=== PATIENT | female | born 1960 | race Caucasian/White ===

== ENCOUNTER 2021-03-31 09:09 | Observation (INO) | payer BC, SELFPAY ==
[2021-03-31] VITALS (11 sets, daily range): BP systolic 142–194; BP diastolic 73–95; PULSE 57–78; RESP 16–19; TEMP 36.6; O2SAT 94–99; BMI 37.0
--- NOTE | ~2021-03-31 | CT_ITS ---
EXAMINATION: CT ANGIOGRAM NECK WITH CONTRAST CT ANGIOGRAM BRAIN WITH CONTRAST CLINICAL INFORMATION: Dizziness and left-sided body numbness. COMPARISON: None. TECHNIQUE: Test bolus sequences followed by intravenous administration 100 mL of Omnipaque 350. Helical imaging was performed in the axial plane from the thoracic inlet to the skull vertex. Delayed postcontrast imaging of the head was also performed. The data was processed at the molecular technologist workstation for generation of MIP sequences. Angled MIPs and volume rendered reformatted images were also generated at an offline 3D workstation. Stenoses are assessed in accordance with NASCET criteria unless otherwise indicated. This CT examination was performed using dose optimization techniques as appropriate, variously including the following: *Automated exposure control *Adjustment of mA and/or kV according to patient size (this includes techniques or standardized protocols for targeted exams where dose is matched to indication/reason for exam; i.e. extremities or head) *Use of iterative reconstruction technique DLP: 2663 mGy-cm FINDINGS: Head CT: There is no intracranial hemorrhage, large acute infarction, or mass lesion. The ventricles are normal in size and configuration without evidence of hydrocephalus. Patchy hypoattenuation is seen in the bilateral cerebral white matter most typical of chronic microangiopathy. A small chronic lacunar infarct is seen in the right basal ganglia. The left aspect of the cecil is difficult to evaluate due to streak artifact throughout this region. On the postcontrast images, no abnormal enhancement is seen. The dural venous sinuses are normally opacified. Mild paranasal sinus mucosal thickening is seen. The mastoids demonstrate minimal opacification. Neck CTA: The aortic arch and great vessels are patent. Both common carotid arteries demonstrate a retropharyngeal course but are patent with mild atheromatous changes noted. There is no significant stenosis of the cervical segments of the internal carotid arteries. Both vertebral arteries are patent throughout the neck. Head CTA: No proximal vessel occlusion is seen. The vertebrobasilar system is patent. 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 The ACAs are patent. Mild atheromatous changes are seen at the carotid siphons without significant stenosis. The ACAs and MCAs are patent with symmetric collaterals. No aneurysm is seen. Non-vascular findings: Severe degenerative changes are seen at C4-C5, C5-C6, and C6-C7. The cervical soft tissues are within normal limits. No consolidation is seen in the upper lungs. Significant periodontal and periapical disease is seen. CT/CT angio head neck IMPRESSION: CT head: No intracranial hemorrhage or large acute infarction. Changes of chronic microangiopathy. Small chronic lacunar infarct is seen in the right basal ganglia CTA neck: No hemodynamically significant stenosis in the major arteries of the neck. CTA head: No large vessel occlusion or significant stenosis within the intracranial circulation. This critical result was discussed with EARNEST Morales on 03/31/2021 12:08 PM, and it was ascertained that the content and urgency of the report was understood at the time of direct communication.
--- NOTE | ~2021-03-31 | MR_ITS ---
EXAMINATION: MRI BRAIN WITHOUT CONTRAST CLINICAL INFORMATION: Dizziness. Left-sided paresthesias. COMPARISON: CT angiogram of the head and neck 03/31/2021. TECHNIQUE: Multiplanar MR imaging of the brain was performed without contrast. FINDINGS: There are scattered nonspecific foci of T2 FLAIR signal hyperintensity within the periventricular white matter that most likely represent a chronic manifestation of small vessel ischemia. No acute territorial infarct. No pathological magnetic susceptibility artifact. Intracranial vascular flow voids are grossly maintained. There is no intracranial mass effect or midline shift. No abnormal extra-axial collection. Lateral and third ventricles are proportionate to the subarachnoid spaces. No hydrocephalus. Midline structures including the cervicomedullary junction are normal. No acute bone marrow signal changes. There is a left mastoid effusion. No active paranasal sinus disease. Globes and orbits are symmetric. MR/MR head/brain wo con IMPRESSION: There are scattered chronic small vessel ischemic changes within the periventricular white matter. No evidence of acute territorial infarct or hemorrhage.
--- NOTE | ~2021-03-31 | XR_ITS ---
EXAMINATION: XR CHEST CLINICAL INFORMATION: Dizziness and left-sided body numbness COMPARISON: None TECHNIQUE: Frontal view of the chest was obtained. FINDINGS: The lungs are well-expanded with patchy opacity in the lingula. Rest lungs are clear. The heart size and pulmonary vascularity is normal. No gross bony abnormality. XR/XR chest 1V IMPRESSION: There is patchy opacity in both lung bases, likely atelectasis. No acute process seen.
--- NOTE | 2021-03-31 09:36 | ECG_ITS ---
Test Reason : DIZZINESS Blood Pressure : / mmHG Vent. Rate : 058 BPM Atrial Rate : 058 BPM P-R Int : 128 ms QRS Dur : 104 ms QT Int : 442 ms P-R-T Axes : 006 -02 049 degrees QTc Int : 433 ms Sinus bradycardia Otherwise normal ECG No previous ECGs available Referred By: Elisha Nascimento Electronically Signed By:Jv Garcia
[2021-03-31 10:13] LABS: MANUAL DIFF FLAG NO
[2021-03-31 10:17] LABS: Basophils Absolute Auto 0.1 X10*3/uL (0.0-0.2); Basophils Percent Auto 0.9 % (0-2); Eosinophils Absolute Auto 0.2 X10*3/uL (0.0-0.4); Eosinophils Percent Auto 2.2 % (0-4); Hematocrit 40.5 % (37-47); Imm Gran Abs Auto 0.04 X10*3/uL (0.00-0.03); Imm Gran Pct Auto 0.5 % (0.0-0.4); Lymphocytes Absolute Auto 1.8 X10*3/uL (1.2-4.9); Lymphocytes Percent Auto 23.9 % (20-40); Mean Corpuscular HGB Conc 34.6 g/dl (31.0-35.0); Mean Corpuscular Hemoglobin 33.3 pg (27.0-33.0); Mean Corpuscular Volume 96.2 fL (80-98); Mean Platelet Volume 9.9 fL (9.4-12.3); Monocytes Absolute Auto 0.5 X10*3/uL (0.1-1.2); Monocytes Percent Auto 6.7 % (2-11); Neutrophils Percent Auto 65.8 % (45-73); Platelet Count 234 X10*3/uL (160-400); Red Blood Count 4.21 X10*6/uL (4.20-5.50); Red Cell Distribution Width 12.3 % (11.0-16.0); White Blood Count 7.7 X10*3/uL (4.8-10.8)
[2021-03-31 10:26] LABS: INTERNATIONAL NORM RATIO 0.9 (0.9-1.1); Prothrombin Time 10.6 SEC (9.9-13.0)
[2021-03-31 10:29] LABS: Partial Thromboplastin Time 33.5 SEC (24.1-38.0)
[2021-03-31 10:44] LABS: B Type Natriuretic Peptide 42 pg/mL (<100)
[2021-03-31 10:44] LABS: Alanine Aminotransferase 23 U/L (0-31); Alkaline Phosphatase 76 U/L (39-117); Anion Gap 18 (12-20); Aspartate Amino Transferase 29 U/L (5-31); Bilirubin Total 0.3 mg/dL (0.0-1.0); Blood Urea Nitrogen 10 mg/dL (9-16); Calcium 9.3 mg/dL (8.4-10.2); Carbon Dioxide 21 mmol/L (22-29); Chloride 105 mmol/L (96-108); Creatinine Clr Calc Pharmacy 97.2; Estimated Glomerular Filt Rate > 60; Glucose Random 102 mg/dL (60-115); Magnesium 1.8 mg/dL (1.6-2.6); Potassium 4.8 mmol/L (3.3-5.1); Sodium 139 mmol/L (135-145); Total Protein 6.9 g/dL (6.5-8.0)
[2021-03-31] MEDS: iohexoL 350 MG/ML 100 ML INFUS..BTL IV (11:54)
--- NOTE | 2021-03-31 11:59 | ED_ITS ---
HPI - Neuro Symptoms/Deficit General Chief Complaint: Stroke Stated Complaint: left side numbness, high blood pressure Time Seen by Provider: 03/31/21 09:28 Source: patient and family ( at bedside) Mode of arrival: ambulatory Limitations: no limitations History of Present Illness HPI Narrative: 60-year-old female with a past medical history of asthma, hyperlipidemia and hypertension presenting to the ED with complaints of numbness that started at approximately 17:00 yesterday to her left arm then radiated to her left face and now is in her left lower extremity with associated dizziness where she feels like she is going to fall over. She reports this morning she also had an elevated blood pressure of 200's/115's prior to arrival although this was before she took her blood pressure medication. She denies any headaches, recent falls or head injury, fevers, chills, changes in vision, nausea/vomiting, paresthesias, chest pain, shortness of breath, dyspnea exertion, orthopnea, palpitations, abdominal pain, back pain, dysuria, hematuria, black or bloody stools, diarrhea, constipation, lower extremity edema or calf tenderness or any other symptoms complaints or concerns at this time. Onset (ago): day(s) (Since yesterday around 17:00) Timing confirmed by: spouse Location: left face, left arm and left leg History of same: No Severity: moderate Quality: numb, tingling and constant Relieving factors: none Exacerbating factors: none Context: gradual onset On Anticoagulants: No Associated symptoms: other (Dizziness) Treatments Prior to Arrival: none Related Data Home Medications Medication Instructions Recorded Confirmed albuterol sulfate 90 mcg/actuation 2 inh INHALATION Q4H PRN 03/31/21 03/31/21 aerosol inhaler allopurinol 300 mg tablet 1 tab PO BEDTIME 03/31/21 03/31/21 budesonide-formoterol HFA 160 2 puff PO BID 03/31/21 03/31/21 mcg-4.5 mcg/actuation aerosol inhaler (Symbicort) carvedilol 12.5 mg tablet 1 tab PO BID 03/31/21 03/31/21 cetirizine 10 mg tablet (Zyrtec) 10 mg PO DAILY 03/31/21 03/31/21 citalopram 20 mg tablet 20 mg PO BEDTIME 03/31/21 03/31/21 fluticasone propionate 50 1 spray INTRANASAL DAILY 03/31/21 03/31/21 mcg/actuation nasal spray,suspension montelukast 10 mg tablet 1 tab PO BEDTIME 03/31/21 03/31/21 simvastatin 20 mg tablet 1 tab PO BEDTIME 03/31/21 03/31/21 Allergies Allergy/AdvReac Type Severity Reaction Status Date / Time clindamycin Allergy Hives Verified 03/31/21 09:16 Penicillins [PCN] Allergy Anaphylaxis Verified 03/31/21 09:16 Sulfa (Sulfonamide Allergy Vomiting Verified 03/31/21 09:16 Antibiotics) Review of Systems Review of Systems: Constitutional : No Fever, No Chills, No Night Sweats, No Fatigue, No Malaise ENT/Mouth : No Ear Pain, No Nasal Congestion, No Sinus Pain, No sore throat, No Rhinorrhea Eyes: No Eye Pain, No Swelling, No Redness, No Foreign Body, No Discharge, No Vision Changes Cardiovascular : No Chest Pain, No SOB, No Dyspnea on Exertion, No Orthopnea, No Palpitations Respiratory : No Cough, No Sputum, No Wheezing, No Dyspnea Gastrointestinal : No Nausea, No Vomiting, No Diarrhea, No Constipation, No abdominal Pain, No Hematochezia, No Melena Genitourinary : No Dysuria, No Urinary Frequency, No Urinary Incontinence, No Urgency, No Flank Pain Musculoskeletal : No joint pain, No Myalgias Skin : No lacerations Neuro : Positive Dizziness, Positive Numbness/tingling to Left Face/arm/leg, No Focal weakness, no general weakness, No Loss of Consciousness, No Headache Yes all other systems are reviewed and are negative [facility] Past Medical History Attestation statement: The following information was validated with the patient. Medical History Asthma High cholesterol HTN (hypertension) Social History Social History Advance Directives: No Advance Directives Information Provided: Yes Physical Exam Vital Signs: Vital Signs: Last Vital Signs Temp 98 F 03/31/21 09:16 Pulse 62 03/31/21 14:11 Resp 16 03/31/21 14:11 BP 185/90 H 03/31/21 14:11 Pulse Ox 99 03/31/21 14:11 Body Mass Index 37.0 Vital signs have been reviewed as normal and appeared to be correct. Blood pressure hypertensive 142/73. Heart rate normal. Respiration rate normal. Temperature normal. Oxygen saturation normal. Appearance: Alert. Oriented X3. No acute distress. Head: Normal external exam. Normocephalic. Atraumatic. Able to rotate head bilaterally. Eyes: PERRLA. EOMI. No nystagmus noted. Conjunctiva and sclera normal. Eyelids normal. Corneal reflex normal. ENT: EAC normal. TM's Normal. Hearing normal. Pharynx normal. Uvula midline. tongue midline. Moist mucous membranes. No trismus noted. No drooling noted. No muffled voice noted. No nystagmus noted. Neck: Normal inspection. Neck supple. FROM. No adenopathy. Trachea midline. Thyroid Normal. No meningeal signs. No neck mass noted. CVS: Normal heart rate and rhythm. Heart sound normal. No murmurs noted. Pulses normal throughout. Respiratory: No respiratory distress. Painless inspiration. Breath sounds n ormal. No wheezes/rales/rhonchi noted. Chest nontender. No accessory muscle usage noted or decreased air movement noted. Abdomen: Soft and nontender. Bowel sounds normal in all 4 quadrants. No diste ntion noted. No organomegaly noted. No visible injury noted. Back: No CVA tenderness. Full range of motion noted. Skin: Skin warm and dry. Normal skin color. Normal skin turgor. No rashes/lesions/lacerations noted. Extremities: No lower extremity edema. Extremities exhibit normal range of motio n. Extremities nontender. Able to shrug shoulders bilaterally and keep up against resistance. Neuro: Oriented X 3. No motor deficit. No sensory deficit. Reflexes normal. Moving all extremities. No focal motor deficits. Cranial nerves II-XI intact bilaterally. Facial strength normal. Normal cognition. Speech normal. Gait normal. Strength 5/5 throughout. No pronator drift. No tremor noted. No fasciculations noted. No rigidity noted. Muscle tone normal throughout. No asterixis noted. [id number] test normal. Heel to luis test normal. Tandem gait normal. Does not sway with eyes open. Romberg test negative. Rapid alternating movement upper extremity normal. Rapid alternating movement lower extremity normal. Hand drop from overhead Misses face. NIHSS score 0. Course Course Course Narrative: 9:35am - 60-year-old female presenting to the ED with complaints of numbness that start ed at approximately 17:00 yesterday to her left arm then radiated to her left face and now is in her left lower extremity with associated dizziness where she feels like she is going to fall over. She reports this morning she also had an elevated blood pressure of 200's/115's prior to arrival although this was before she took her blood pressure medication. On Exam patient is alert oriented x3. Not in any acute distress. No focal neuro deficits are noted. Normal steady gait. NIH SS score 0. Patient has non disabling symptoms therefore tPA not indicated at this time and patient's symptoms started at 17:00 yesterday. Lungs clear to auscultation. CV RRR. Abdomen is soft and nontender. No lower extremity edema or calf tenderness is noted. Plan: Labs, CTA of head and neck for stroke, EKG, orthostatic vitals, chest x- ray and re-evaluate. Reevaluation(s) Reevaluation #1: - labs reviewed and troponin at 4.0 otherwise all other labs are within normal limits. - pending at this time is orthostatic vitals and CTA of head and neck for stroke will re-evaluate. Time: 12:06 Reevaluation #2: - CTA of head and neck revealed chronic changes no acute processes such as stroke - therefore I consulted with Dr. Grant and Dr. Nieves and patient will be admitted for observation for dizziness with left-sided paresthesias for an MRI without contrast. Patient understands agrees with this plan. Time: 14:25 MDM - Neuro Symptoms/Deficit Medical Records Attestation: I reviewed the patient's medical records. Lab Data Attestation: I reviewed the patient's lab results. Result diagrams: 03/31/21 10:02 03/31/21 10:02 Labs: Lab Results 03/31/21 03/31/21 03/31/21 Range/Units 10:02 10:02 10:02 WBC 7.7 (4.8-10.8) X10*3/uL RBC 4.21 (4.20-5.50) X10*6/uL Hgb 14.0 (12.0-16.0) g/dl Hct 40.5 (37-47) % MCV 96.2 (80-98) fL MCH 33.3 H (27.0-33.0) pg MCHC 34.6 (31.0-35.0) g/dl RDW 12.3 (11.0-16.0) % Plt Count 234 (160-400) X10*3/uL MPV 9.9 (9.4-12.3) fL Immature Gran % (Auto) 0.5 H (0.0-0.4) % Neut % (Auto) 65.8 (45-73) % Lymph % (Auto) 23.9 (20-40) % [place] % (Auto) 6.7 (2-11) % Eos % (Auto) 2.2 (0-4) % Baso % (Auto) 0.9 (0-2) % Lymph # (Auto) 1.8 (1.2-4.9) X10*3/uL [place] # (Auto) 0.5 (0.1-1.2) X10*3/uL Eos # (Auto) 0.2 (0.0-0.4) X10*3/uL Baso # (Auto) 0.1 (0.0-0.2) X10*3/uL Abs Immat Gran (auto) 0.04 H (0.00-0.03) X10*3/uL Absolute Neuts (auto) 5.0 (2.0-8.3) X10*3/uL Absolute Nucleated RBC 0.000 (0.0-0.012) X10*3/uL Nucleated RBC % (auto) 0.0 (0.0-0.2) /100WBC PT 10.6 (9.9-13.0) SEC INR 0.9 (0.9-1.1) APTT 33.5 (24.1-38.0) SEC Sodium 139 (135-145) mmol/L Potassium 4.8 (3.3-5.1) mmol/L Chloride 105 (96-108) mmol/L Carbon Dioxide 21 L (22-29) mmol/L Anion Gap 18 (12-20) BUN 10 (9-16) mg/dL Creatinine 0.70 (0.5-1.4) mg/dL Estim Creat Clear Calc 97.2 Estimated GFR > 60 Random Glucose 102 (60-115) mg/dL Calcium 9.3 (8.4-10.2) mg/dL Magnesium 1.8 (1.6-2.6) mg/dL Total Bilirubin 0.3 (0.0-1.0) mg/dL AST 29 (5-31) U/L ALT 23 (0-31) U/L Alkaline Phosphatase 76 (39-117) U/L Troponin I High Sens (<3.5-17.0) ng/L B-Natriuretic Peptide (<100) pg/mL Total Protein 6.9 (6.5-8.0) g/dL Albumin 4.0 (3.5-5.0) g/dL Urine Color Urine Appearance Urine pH (5.0-8.0) Ur Specific [place] (1.005-1.025) Urine Protein (NEG-TRACE) MG/DL Urine Glucose (UA) (NEG) MG/DL Urine Ketones (NEG) MG/DL Urine Blood (NEG) Urine Nitrite (NEG) Ur Leukocyte Esterase (NEG) COVID-19 (MALISSA) (Negative) COVID-19 Clin Com 03/31/21 03/31/21 03/31/21 Range/Units 10:03 12:45 12:45 WBC (4.8-10.8) X10*3/uL RBC (4.20-5.50) X10*6/uL Hgb (12.0-16.0) g/dl Hct (37-47) % MCV (80-98) fL MCH (27.0-33.0) pg MCHC (31.0-35.0) g/dl RDW (11.0-16.0) % Plt Count (160-400) X10*3/uL MPV (9.4-12.3) fL Immature Gran % (Auto) (0.0-0.4) % Neut % (Auto) (45-73) % Lymph % (Auto) (20-40) % [place] % (Auto) (2-11) % Eos % (Auto) (0-4) % Baso % (Auto) (0-2) % Lymph # (Auto) (1.2-4.9) X10*3/uL [place] # (Auto) (0.1-1.2) X10*3/uL Eos # (Auto) (0.0-0.4) X10*3/uL Baso # (Auto) (0.0-0.2) X10*3/uL Abs Immat Gran (auto) (0.00-0.03) X10*3/uL Absolute Neuts (auto) (2.0-8.3) X10*3/uL Absolute Nucleated RBC (0.0-0.012) X10*3/uL Nucleated RBC % (auto) (0.0-0.2) /100WBC PT (9.9-13.0) SEC INR (0.9-1.1) APTT (24.1-38.0) SEC Sodium (135-145) mmol/L Potassium (3.3-5.1) mmol/L Chloride (96-108) mmol/L Carbon Dioxide (22-29) mmol/L Anion Gap (12-20) BUN (9-16) mg/dL Creatinine (0.5-1.4) mg/dL Estim Creat Clear Calc Estimated GFR Random Glucose (60-115) mg/dL Calcium (8.4-10.2) mg/dL Magnesium (1.6-2.6) mg/dL Total Bilirubin (0.0-1.0) mg/dL AST (5-31) U/L ALT (0-31) U/L Alkaline Phosphatase (39-117) U/L Troponin I High Sens 4.0 4.2 (<3.5-17.0) ng/L B-Natriuretic Peptide 42 (<100) pg/mL Total Protein (6.5-8.0) g/dL Albumin (3.5-5.0) g/dL Urine Color YELLOW Urine Appearance HAZY Urine pH 6.0 (5.0-8.0) Ur Specific [place] <= 1.005 (1.005-1.025) Urine Protein NEG (NEG-TRACE) MG/DL Urine Glucose (UA) NEG (NEG) MG/DL Urine Ketones NEG (NEG) MG/DL Urine Blood NEG (NEG) Urine Nitrite NEG (NEG) Ur Leukocyte Esterase NEG (NEG) COVID-19 (MALISSA) (Negative) COVID-19 Clin Com 03/31/21 Range/Units 13:39 WBC (4.8-10.8) X10*3/uL RBC (4.20-5.50) X10*6/uL Hgb (12.0-16.0) g/dl Hct (37-47) % MCV (80-98) fL MCH (27.0-33.0) pg MCHC (31.0-35.0) g/dl RDW (11.0-16.0) % Plt Count (160-400) X10*3/uL MPV (9.4-12.3) fL Immature Gran % (Auto) (0.0-0.4) % Neut % (Auto) (45-73) % Lymph % (Auto) (20-40) % [place] % (Auto) (2-11) % Eos % (Auto) (0-4) % Baso % (Auto) (0-2) % Lymph # (Auto) (1.2-4.9) X10*3/uL [place] # (Auto) (0.1-1.2) X10*3/uL Eos # (Auto) (0.0-0.4) X10*3/uL Baso # (Auto) (0.0-0.2) X10*3/uL Abs Immat Gran (auto) (0.00-0.03) X10*3/uL Absolute Neuts (auto) (2.0-8.3) X10*3/uL Absolute Nucleated RBC (0.0-0.012) X10*3/uL Nucleated RBC % (auto) (0.0-0.2) /100WBC PT (9.9-13.0) SEC INR (0.9-1.1) APTT (24.1-38.0) SEC Sodium (135-145) mmol/L Potassium (3.3-5.1) mmol/L Chloride (96-108) mmol/L Carbon Dioxide (22-29) mmol/L Anion Gap (12-20) BUN (9-16) mg/dL Creatinine (0.5-1.4) mg/dL Estim Creat Clear Calc Estimated GFR Random Glucose (60-115) mg/dL Calcium (8.4-10.2) mg/dL Magnesium (1.6-2.6) mg/dL Total Bilirubin (0.0-1.0) mg/dL AST (5-31) U/L ALT (0-31) U/L Alkaline Phosphatase (39-117) U/L Troponin I High Sens (<3.5-17.0) ng/L B-Natriuretic Peptide (<100) pg/mL Total Protein (6.5-8.0) g/dL Albumin (3.5-5.0) g/dL Urine Color Urine Appearance Urine pH (5.0-8.0) Ur Specific [place] (1.005-1.025) Urine Protein (NEG-TRACE) MG/DL Urine Glucose (UA) (NEG) MG/DL Urine Ketones (NEG) MG/DL Urine Blood (NEG) Urine Nitrite (NEG) Ur Leukocyte Esterase (NEG) COVID-19 (MALISSA) Negative (Negative) COVID-19 Clin Com See Note Imaging Data Chest x-ray: Attestation: I personally reviewed and interpreted this imaging study as follows: Radiologist's impression: FINDINGS: The lungs are well-expanded with patchy opacity in the lingula. Rest lungs are clear. The heart size and pulmonary vascularity is normal. No gross bony abnormality. XR/XR chest 1V IMPRESSION: There is patchy opacity in both lung bases, likely atelectasis. No acute process seen. CTA of head and neck: Attestation: I personally reviewed and interpreted this imaging study as follows: Radiologist's impression: FINDINGS: Head CT: There is no intracranial hemorrhage, large acute infarction, or mass lesion. The ventricles are normal in size and configuration without evidence of hydrocephalus. Patchy hypoattenuation is seen in the bilateral cerebral white matter most typical of chronic microangiopathy. A small chronic lacunar infarct is seen in the right basal ganglia. The left aspect of the cecil is difficult to evaluate due to streak artifact throughout this region. On the postcontrast images, no abnormal enhancement is seen. The dural venous sinuses are normally opacified. ? Mild paranasal sinus mucosal thickening is seen. The mastoids demonstrate minimal opacification. Neck CTA: The aortic arch and great vessels are patent. Both common carotid arteries demonstrate a retropharyngeal course but are patent with mild atheromatous changes noted. There is no significant stenosis of the cervical segments of the internal carotid arteries. Both vertebral arteries are patent throughout the neck. Head CTA: No proximal vessel occlusion is seen. The vertebrobasilar system is patent. There is disposition of the bilateral daily sales audit clerk. The ACAs are patent. Mild atheromatous changes are seen at the carotid siphons without significant stenosis. The ACAs and MCAs are patent with symmetric collaterals. No aneurysm is seen. Non-vascular findings: Severe degenerative changes are seen at C4-C5, C5-C6, and C6-C7. The cervical soft tissues are within normal limits. No consolidation is seen in the upper lungs. Significant periodontal and periapical disease is seen. CT/CT angio head neck IMPRESSION: CT head: No intracranial hemorrhage or large acute infarction. Changes of chronic microangiopathy. Small chronic lacunar infarct is seen in the right basal ganglia ? CTA neck: No hemodynamically significant stenosis in the major arteries of the neck. ? CTA head: No large vessel occlusion or significant stenosis within the intracranial circulation. ? This critical result was discussed with EARNEST Morales on 03/31/2021 12:08 PM, and it was ascertained that the content and urgency of the report was understood at the time of direct communication. ECG Data Attestation: I personally reviewed and interpreted this ECG as follows: ECG interpretation date: 03/31/21 ECG interpretation time: 09:39 Interpretation: EKG sinus bradycardia with ventricular rate of 58 with a normal ID interval normal QRS duration normal QT/QTC interval. No acute ischemic paredes e noted. No prior EKGs in our system to at this time. Critical Care Time Critical Care Time Critical Care Time: Yes Total Critical Care Time: 60 Attestation: I personally attest to this time spent taking care of the patient Discharge Plan Discharge Clinical Impression: Dizziness, Paresthesia Patient Disposition: Admitted As Inpatient
[2021-03-31 12:55] LABS: Glucose Urine UA NEG (NEG); Leukocyte Esterase Urine NEG (NEG); Nitrite Urine NEG (NEG); Specific Gravity - Urine <= 1.005 (1.005-1.025); Urine Blood NEG (NEG); Urine Ketones NEG (NEG); Urine Protein NEG (NEG-TRACE)
[2021-03-31 12:58] LABS: Appearance Urine HAZY; Color Urine YELLOW
[2021-03-31 13:17] LABS: Troponin-I High Sensitivity 4.2 ng/L (<3.5-17.0)
[2021-03-31 14:00] LABS: COVID-19 Test Negative (Negative)
--- NOTE | 2021-03-31 14:09 | PM.IMHP ---
History of Present Illness Date of Service: 03/31/21 Chief Complaint: left sided numbness 60F presented with left sided numbness. day prior to admission patient felt left sided numbness, then in early am awoke with left leg feeling like a noodle weakness, and numbness, and LUE numbness. also started having headache. dneies aura. denies previous symptoms. in ED CTA was negative for acute cva, did show old lacunar infarct right basal ganglia. weakness, resolved, but numbness still perssitent. Review of Systems Review of Systems: Constitutional: Denies fever, denies Chills Eyes: denies blurry vision ENT: denies sore throat CVS: denies chest pain Respiratory: Denies dyspnea GI: no abdominal pain : denies dysuria MSK: denies neck pain Skin: denies rash Neuro: see hpi Psych: denies suicidal ideation Endocrine: denies heat/cold intolerance Hematologic: denies easy bleeding Allergy: denies hives [facility] Medical History Asthma High cholesterol HTN (hypertension) Family history: reviewed and not pertinent Social History Advance Directives: No Advance Directives Information Provided: Yes Meds Allergies Allergy/AdvReac Type Severity Reaction Status Date / Time clindamycin Allergy Hives Verified 03/31/21 09:16 Penicillins [PCN] Allergy Anaphylaxis Verified 03/31/21 09:16 Sulfa (Sulfonamide Allergy Vomiting Verified 03/31/21 09:16 Antibiotics) Active Medications: Current Medications Generic Name Dose Route Start Last Admin Trade Name Freq PRN Reason Stop Dose Admin Pharmacy Consult 1 each 03/31/21 13:27 Consult Rx Perform Med Rec MISCELLANE ONCE PRN Consult order Home Medications Medication Instructions Recorded Confirmed Last Taken Type allopurinol 300 mg tablet 1 tab PO DAILY 03/31/21 Unknown History budesonide-formoterol HFA 160 2 puff PO BID 03/31/21 Unknown History mcg-4.5 mcg/actuation aerosol inhaler (Symbicort) carvedilol 12.5 mg tablet 1 tab PO BID 03/31/21 Unknown History montelukast 10 mg tablet 1 tab PO DAILY 03/31/21 Unknown History simvastatin 20 mg tablet 1 tab PO QPM 03/31/21 Unknown History Physical Exam Vital Signs and Narrative: Vital Signs: Last Vital Signs Temp 98 F 03/31/21 09:16 Pulse 67 03/31/21 12:45 Resp 16 03/31/21 12:45 BP 169/84 H 03/31/21 12:45 Pulse Ox 95 03/31/21 12:45 Body Mass Index 37.0 General: no acute distress HEENT: atraumatic Neck: normal to visual inspection CVS: S1, S2, RRR Resp: CTA bilateral Chest: non tender GI: soft, non tender, non distended : no CVA tenderness Skin: no rashes Extremities: no edema Neuro: Oriented X3, motor intact, numb left upper and lower Psych: cooperative Results Labs CBC and Chem 7: 03/31/21 10:02 03/31/21 10:02 Labs: Laboratory Results - last 24 hr 03/31/21 03/31/21 03/31/21 10:02 10:02 10:02 MCV 96.2 MCH 33.3 H MCHC 34.6 RDW 12.3 Plt Count 234 MPV 9.9 Immature Gran % (Auto) 0.5 H Neut % (Auto) 65.8 Lymph % (Auto) 23.9 [place] % (Auto) 6.7 Eos % (Auto) 2.2 Baso % (Auto) 0.9 Lymph # (Auto) 1.8 [place] # (Auto) 0.5 Eos # (Auto) 0.2 Baso # (Auto) 0.1 Abs Immat Gran (auto) 0.04 H Absolute Neuts (auto) 5.0 Absolute Nucleated RBC 0.000 Nucleated RBC % (auto) 0.0 PT 10.6 INR 0.9 APTT 33.5 Anion Gap 18 Estim Creat Clear Calc 97.2 Estimated GFR > 60 Random Glucose 102 Calcium 9.3 Magnesium 1.8 Total Bilirubin 0.3 AST 29 ALT 23 Alkaline Phosphatase 76 Troponin I High Sens B-Natriuretic Peptide Total Protein 6.9 Albumin 4.0 Urine Color Urine Appearance Urine pH Ur Specific [place] Urine Protein Urine Glucose (UA) Urine Ketones Urine Blood Urine Nitrite Ur Leukocyte Esterase COVID-19 (MALSISA) COVID-19 Clin Com 03/31/21 03/31/21 03/31/21 10:03 12:45 12:45 MCV MCH MCHC RDW Plt Count MPV Immature Gran % (Auto) Neut % (Auto) Lymph % (Auto) [place] % (Auto) Eos % (Auto) Baso % (Auto) Lymph # (Auto) [place] # (Auto) Eos # (Auto) Baso # (Auto) Abs Immat Gran (auto) Absolute Neuts (auto) Absolute Nucleated RBC Nucleated RBC % (auto) PT INR APTT Anion Gap Estim Creat Clear Calc Estimated GFR Random Glucose Calcium Magnesium Total Bilirubin AST ALT Alkaline Phosphatase Troponin I High Sens 4.0 4.2 B-Natriuretic Peptide 42 Total Protein Albumin Urine Color YELLOW Urine Appearance HAZY Urine pH 6.0 Ur Specific [place] <= 1.005 Urine Protein NEG Urine Glucose (UA) NEG Urine Ketones NEG Urine Blood NEG Urine Nitrite NEG Ur Leukocyte Esterase NEG COVID-19 (MALISSA) COVID-19 Clin Com 03/31/21 13:39 MCV MCH MCHC RDW Plt Count MPV Immature Gran % (Auto) Neut % (Auto) Lymph % (Auto) [place] % (Auto) Eos % (Auto) Baso % (Auto) Lymph # (Auto) [place] # (Auto) Eos # (Auto) Baso # (Auto) Abs Immat Gran (auto) Absolute Neuts (auto) Absolute Nucleated RBC Nucleated RBC % (auto) PT INR APTT Anion Gap Estim Creat Clear Calc Estimated GFR Random Glucose Calcium Magnesium Total Bilirubin AST ALT Alkaline Phosphatase Troponin I High Sens B-Natriuretic Peptide Total Protein Albumin Urine Color Urine Appearance Urine pH Ur Specific [place] Urine Protein Urine Glucose (UA) Urine Ketones Urine Blood Urine Nitrite Ur Leukocyte Esterase COVID-19 (MALISSA) Negative COVID-19 Clin Com See Note Imaging Radiologist's Impressions: Impressions Chest X-Ray 03/31/21 09:36 IMPRESSION: There is patchy opacity in both lung bases, likely atelectasis. No acute process seen. Head/Neck CTA 03/31/21 09:36 IMPRESSION: CT head: No intracranial hemorrhage or large acute infarction. Changes of chronic microangiopathy. Small chronic lacunar infarct is seen in the right basal ganglia CTA neck: No hemodynamically significant stenosis in the major arteries of the neck. CTA head: No large vessel occlusion or significant stenosis within the intracranial circulation. This critical result was discussed with EARNEST Morales on 03/31/2021 12:08 PM, and it was ascertained that the content and urgency of the report was understood at the time of direct communication. Assessment and Plan (1) HTN (hypertension): Status: Acute 60F presented with left sided numbness left sided numbness rule out cva neuro eval, tele, mri ddx. includes complicated migraine, hypertensive urgency asa, statin htn continue coreg asthma singular symbicort Quality Stroke Does the patient have a stroke diagnosis?: No VTE Prior VTE?: No VTE Risk Level:: Medical - moderate - high VTE Device Contraindication: Treatment Not Indicated VTE Drug Contraindication: N/A - Med Ordered
[2021-03-31] MEDS: Enoxaparin Sodium 40 MG/0.4 ML SYRINGE SUBCUT (14:16)
[2021-03-31] MEDS: Acetaminophen 325 MG TABLET 650 MG PO ×2 (14:16→21:02)
[2021-03-31] MEDS: 0.9 % Sodium Chloride Flush 3 ML SYRINGE IVFLUSH (14:19)
--- NOTE | 2021-03-31 14:20 | PHA.MEDREC ---
Pharmacy Consult ? Medication Reconciliation Pharmacy has completed the medication reconciliation. There are no remarkable issues for provider's attention. Priya Yu, UmuD
--- NOTE | 2021-03-31 19:52 | PC.NURSE ---
[facility] Hospitalist (Ellie) notified
[2021-03-31] MEDS: Montelukast Sodium 10 MG TABLET PO (20:58)
[2021-03-31] MEDS: carvediloL 12.5 MG TABLET PO (20:58)
[2021-03-31] MEDS: allopurinoL 300 MG TABLET PO (20:58)
[2021-03-31] MEDS: Escitalopram Oxalate 10 MG TABLET PO (20:58)
[2021-03-31] MEDS: Atorvastatin Calcium 10 MG TABLET PO (20:58)
--- NOTE | 2021-03-31 22:08 | MHC.CM.PN ---
Addendum entered by Rox Funez 03/31/21 22:13: Pt declines to complete a HCP at this time. Original Note: Met with pt, observation status with a bed assignment pending. Pt is A&O. Pt lives with her and son. Pt is employed. Pt has no DME and uses no services. D/C plan is home without services. will provide transportation home. CM to follow for d/c needs.
[2021-04-01] VITALS (7 sets, daily range): BP systolic 160–188; BP diastolic 80–94; PULSE 62–76; RESP 18–20; TEMP 36.7–37.3; O2SAT 92–96
[2021-04-01] MEDS: 0.9 % Sodium Chloride Flush 3 ML SYRINGE IVFLUSH ×2 (00:36→07:37)
--- NOTE | 2021-04-01 01:10 | PC.NURSE ---
nurse to nurse report given to Shannon BOUCHER
[2021-04-01] MEDS: Aspirin Enteric Coated 81 MG TABLET.DR PO (07:37)
[2021-04-01] MEDS: Fluticasone Propionate Nasal 16 GM SPRAY 1 SPRAY NOSTRIL-B (07:37)
[2021-04-01] MEDS: Acetaminophen 325 MG TABLET 650 MG PO (07:37)
[2021-04-01] MEDS: carvediloL 12.5 MG TABLET PO (07:37)
[2021-04-01] MEDS: Loratadine 10 MG TABLET PO (07:37)
[2021-04-01] MEDS: Fluticasone/Vilanterol 200/25 BLST.W.DEV 1 PUFF INHALE (07:51)
[2021-04-01] MEDS: amLODIPine Besylate 5 MG TABLET PO (09:57)
--- NOTE | 2021-04-01 12:15 | PM.NEUROCN ---
History of Present Illness Data of Consult Service Date: 04/01/21 Primary Care Provider: Kacy Lewis NP HPI Reason for consult: Left-sided numbness 60 years old woman who developed left-sided numbness yesterday. It involves face arm trunk and leg. It was there when she slept and when she woke up she still had numbness and also had a headache. She denied having any previous headaches. She has reported in emergency room that her left leg seemed like janice. [facility] Past Medical History Medical History Asthma High cholesterol HTN (hypertension) Family History Family history: reviewed and not pertinent Social History Social History Patient Tobacco Use Status: Never used Tobacco Advance Directives: No Advance Directives Information Provided: Yes service: No Current occupational status: employed Meds Allergies Allergy/AdvReac Type Severity Reaction Status Date / Time clindamycin Allergy Hives Verified 03/31/21 09:16 Penicillins [PCN] Allergy Anaphylaxis Verified 03/31/21 09:16 Sulfa (Sulfonamide Allergy Vomiting Verified 03/31/21 09:16 Antibiotics) Active Medications: Current Medications Generic Name Dose Route Start Last Admin Trade Name Freq PRN Reason Stop Dose Admin Acetaminophen 650 mg 03/31/21 14:06 04/01/21 07:37 Acetaminophen 325 Mg Tablet PO 650 mg Q6H PRN Administration Pain, Mild (Pain Scale 1-3) Albuterol Sulfate 2 puff 03/31/21 14:21 Albuterol Sulfate 90 Mcg 8 Gm Inhaler INHALE Q4H PRN Wheezing Allopurinol 300 mg 03/31/21 21:00 03/31/21 20:58 Allopurinol 300 Mg Tablet PO 300 mg BEDTIME MARTIN Administration Amlodipine Besylate 5 mg 04/01/21 09:00 04/01/21 09:57 Amlodipine Besylate 5 Mg Tablet PO 5 mg DAILY MARTIN Administration Protocol Aspirin 81 mg 04/01/21 09:00 04/01/21 07:37 Aspirin Enteric Coated 81 Mg Tablet. PO 81 mg DAILY MARTIN Administration Atorvastatin Calcium 10 mg 03/31/21 21:00 03/31/21 20:58 Atorvastatin Calcium 10 Mg Tablet PO 10 mg BEDTIME MARTIN Administration Carvedilol 12.5 mg 03/31/21 21:00 04/01/21 07:37 Carvedilol 12.5 Mg Tablet PO 12.5 mg BID MARTIN Administration Protocol Enoxaparin Sodium 40 mg 03/31/21 14:15 03/31/21 14:16 Enoxaparin Sodium 40 Mg/0.4 Ml Syringe SUBCUT 40 mg Q24H MARTIN Administration Escitalopram Oxalate 10 mg 03/31/21 21:00 03/31/21 20:58 Escitalopram Oxalate 10 Mg Tablet PO 10 mg BEDTIME MARTIN Administration Fluticasone Propionate 1 spray 04/01/21 09:00 04/01/21 07:37 Fluticasone Propionate Nasal 16 Gm [place] NOSTRIL-B 1 spray DAILY MARTIN Administration Fluticasone/Vilanterol 1 puff 04/01/21 09:00 04/01/21 07:51 Fluticasone/Vilanterol 200/25 Blst.W.Dev INHALE 1 puff DAILY MARTIN Administration Loratadine 10 mg 04/01/21 09:00 04/01/21 07:37 Loratadine 10 Mg Tablet PO 10 mg DAILY MARTIN Administration Montelukast Sodium 10 mg 03/31/21 21:00 03/31/21 20:58 Montelukast Sodium 10 Mg Tablet PO 10 mg BEDTIME [facility] Administration Pharmacy Consult 1 each 03/31/21 13:27 Consult Rx Perform Med Rec MISCELLANE ONCE PRN Consult order Sodium Chloride 3 ml 03/31/21 16:00 04/01/21 07:37 0.9 % Sodium Chloride Flush 3 Ml Syringe IVFLUSH 3 ml QSHIFT MARTIN Administration Home Medications Medication Instructions Recorded Confirmed Last Taken Type albuterol sulfate 90 mcg/actuation 2 inh INHALATION Q4H PRN 03/31/21 03/31/21 03/30/21 History aerosol inhaler allopurinol 300 mg tablet 1 tab PO BEDTIME 03/31/21 03/31/21 03/30/21 History budesonide-formoterol HFA 160 2 puff PO BID 03/31/21 03/31/21 03/31/21 History mcg-4.5 mcg/actuation aerosol inhaler (Symbicort) carvedilol 12.5 mg tablet 1 tab PO BID 03/31/21 03/31/21 03/31/21 History cetirizine 10 mg tablet (Zyrtec) 10 mg PO DAILY 03/31/21 03/31/21 03/30/21 History citalopram 20 mg tablet 20 mg PO BEDTIME 03/31/21 03/31/21 03/30/21 History fluticasone propionate 50 1 spray INTRANASAL DAILY 03/31/21 03/31/21 03/30/21 History mcg/actuation nasal spray,suspension montelukast 10 mg tablet 1 tab PO BEDTIME 03/31/21 03/31/21 03/30/21 History simvastatin 20 mg tablet 1 tab PO BEDTIME 03/31/21 03/31/21 03/30/21 History Physical Exam Vital Signs: Vital Signs: Last Vital Signs Temp 98.1 F 04/01/21 11:13 Pulse 62 04/01/21 11:13 Resp 20 04/01/21 11:13 BP 160/94 H 04/01/21 11:13 Pulse Ox 95 04/01/21 11:13 Body Mass Index 37.0 Neuro: Other: When I arrived in her room she was laying in a recliner with eyes closed and twitching. When I tried to communicate with her she did not respond for few seconds and then suddenly came out stating that she could not speak. A 2nd later she was able to speak fluent [place]. Comprehension was intact. Pupils were equal and reactive to light and extraocular muscles were intact. Visual boone are full. Face was symmetrical. There was no obvious focal arm or leg weakness. Deep tendon reflexes were trace to absent with flexor plantars. Results Labs CBC & Chem 7: 03/31/21 10:02 03/31/21 10:02 Labs: Urine 03/31/21 Range/Units 12:45 Urine Color YELLOW Urine Appearance HAZY Urine pH 6.0 (5.0-8.0) Ur Specific [place] <= 1.005 (1.005-1.025) Urine Protein NEG (NEG-TRACE) MG/DL Urine Glucose (UA) NEG (NEG) MG/DL noncontrast MRI did not reveal any acute pathology. Moderate amount of chronic microvascular ischemic changes were noted. CTA of neck and head did not reveal any significant vascular stenosis. Assessment and Plan (1) Left sided numbness: Status: Acute 60 years old woman who presented with left-sided numbness followed by headache. Her examination today was difficult to interpret and had features suggestive of psychological overlay. She did have underlying hypertension and chronic microvascular ischemic changes but there was no evidence of any acute pathology. At this time mainstay of management is blood pressure control, anti-platelet agent, statin and reassurance and education. PT OT consultation can also help. Procedures Date of Service Date of Service: 04/01/21
--- NOTE | 2021-04-01 12:49 | P.DS_ITS ---
DS: Providers Provider Date of Service: 04/01/21 Date of admission: 03/31/21 14:06 Primary care physician: Kacy Lewis NP Consults: 03/31/21 14:06 Consult to Neurology Routine Consulting Provider: [facility] Reason for consultation: left sided numbness DS: Diagnosis Discharge Diagnosis (1) Left sided numbness: Status: Acute DS: Medications Discharge Medications Home Medications: Home Medications Medication Instructions Recorded Confirmed albuterol sulfate 90 mcg/actuation 2 inh INHALATION Q4H PRN 03/31/21 03/31/21 aerosol inhaler allopurinol 300 mg tablet 1 tab PO BEDTIME 03/31/21 03/31/21 budesonide-formoterol HFA 160 2 puff PO BID 03/31/21 03/31/21 mcg-4.5 mcg/actuation aerosol inhaler (Symbicort) carvedilol 12.5 mg tablet 1 tab PO BID 03/31/21 03/31/21 cetirizine 10 mg tablet (Zyrtec) 10 mg PO DAILY 03/31/21 03/31/21 citalopram 20 mg tablet 20 mg PO BEDTIME 03/31/21 03/31/21 fluticasone propionate 50 1 spray INTRANASAL DAILY 03/31/21 03/31/21 mcg/actuation nasal spray,suspension montelukast 10 mg tablet 1 tab PO BEDTIME 03/31/21 03/31/21 simvastatin 20 mg tablet 1 tab PO BEDTIME 03/31/21 03/31/21 Previous Rx's Medication Instructions Recorded amlodipine 5 mg tablet 5 mg PO DAILY #30 tab 04/01/21 aspirin 81 mg tablet,delayed 81 mg PO DAILY #30 tab 04/01/21 release DS: Summary Hospital Course Hospital Course: Patient was admitted for paresthesias on the left side. Her MRI was unremarkable. She was seen by Neurology who recommended aspirin, statin. Differential diagnosis includes complicated migraine, somatoform disorder. She can follow up with Neurology as outpatient if symptoms persist. Time Spent with Patient Time attestation: Total time spent providing and/or coordinating discharge services: Discharge coordination time: Greater than 30 minutes Quality: Stroke Does the patient have a stroke diagnosis?: No Physical Exam Vital Signs: Vital Signs: Last Vital Signs Temp 98.1 F 04/01/21 11:13 Pulse 62 04/01/21 11:13 Resp 20 04/01/21 11:13 BP 160/94 H 04/01/21 11:13 Pulse Ox 95 04/01/21 11:13 Body Mass Index 37.0 General: AO X 3, no acute distress Resp: CTA bilateral CVS: S1,S2,RRR GI: soft, non tender, non distended Neuro: motor grossly intact Psych: appropriate affect DS: Data Data Completed and Pending Labs on day of discharge: Laboratory Results - last 24 hr 03/31/21 03/31/21 03/31/21 12:45 12:45 13:39 Troponin I High Sens 4.2 Urine Color YELLOW Urine Appearance HAZY Urine pH 6.0 Ur Specific [place] <= 1.005 Urine Protein NEG Urine Glucose (UA) NEG Urine Ketones NEG Urine Blood NEG Urine Nitrite NEG Ur Leukocyte Esterase NEG COVID-19 (MALISSA) Negative COVID-19 Clin Com See Note Discharge Plan Discharge Patient Disposition: Home, Self-Care Discharge Diagnosis: parasthesias Referrals: Kacy Lewis NP [Primary Care Provider] - 1 Week Discharge Medications: New amlodipine 5 mg Tablet 5 mg PO DAILY Qty: 30 RF: 0 aspirin 81 mg Tablet,Delayed Release (Dr/Ec) 81 mg PO DAILY Qty: 30 RF: 0 Continued carvedilol 12.5 mg tablet 1 tab PO BID RF: 0 simvastatin 20 mg tablet 1 tab PO BEDTIME RF: 0 montelukast 10 mg tablet 1 tab PO BEDTIME RF: 0 allopurinol 300 mg tablet 1 tab PO BEDTIME RF: 0 budesonide-formoterol [Symbicort] 160-4.5 mcg/actuation HFA aerosol inhaler 2 puff PO BID RF: 0 cetirizine [Zyrtec] 10 mg Tablet 10 mg PO DAILY RF: 0 citalopram 20 mg Tablet 20 mg PO BEDTIME RF: 0 albuterol sulfate 90 mcg/actuation Hfa Aerosol Inhaler 2 inh INHALATION Q4H PRN (Reason: Wheezing) RF: 0 fluticasone propionate 50 mcg/actuation [place],Suspension 1 spray INTRANASAL DAILY RF: 0 Discharge Orders: Discharge Order (Routine); Ordered 04/01/21 Ordered By: Bandar Nieves Diet: advance to usual diet Activity on Discharge: As tolerated Stand Alone Forms: Patient Portal Discharge page Care Plan Goals: recovery Health Concerns: parasthesias Plan of Treatment: asa, statin, can follow up with neuro if symptoms persist Assessment: see above
--- NOTE | 2021-04-01 12:55 | MHC.CM.PN ---
PT CLEARED TO DC HOME TODAY WITH NO SERVICES
== END 2021-04-01 15:05 | disposition home or self-care (01) ==
LOC: HO.ED 09:30 → HO.EDOVER 14:24 → HO.IMC 04-01 00:01
PROVIDERS: Physician Assistant Medical; Admitting Provider Internal Medicine; Emergency Provider Emergency Medicine; PCP Nurse Practitioner Adult Health; Visit Provider Internal Medicine
DX: R42 Dizziness and giddiness (principal); R20.0 Anesthesia of skin; R51.9 Headache, unspecified; G23.8 Other specified degenerative diseases of basal ganglia; I10 Essential (primary) hypertension; E78.00 Pure hypercholesterolemia, unspecified; J45.909 Unspecified asthma, uncomplicated; Z20.822 Contact with and (suspected) exposure to COVID-19; Z88.0 Allergy status to penicillin; Z88.2 Allergy status to sulfonamides; Z88.8 Allergy status to other drugs, medicaments and biological substances; Z79.899 Other long term (current) drug therapy
CPT/HCPCS: 36415; 70496; 70498; 70551; 71045; 80053; 81003; 83735; 83880; 84484; 85025; 85610; 85730; 87635; 93005; 96372; 99219; 99285; 99291; J1650; Q9967

== ENCOUNTER → 2023-02-02 15:47 | Outpatient (BNVA) | payer BC, SELFPAY | PROVIDERS: PCP Internal Medicine; Visit Provider Internal Medicine ==

== ENCOUNTER 2023-02-14 14:15 | Outpatient (REF) | payer BC, SELFPAY ==
[2023-02-14 18:23] LABS: Alanine Aminotransferase 25 U/L (0-31); Albumin Level 4.5 g/dL (3.5-5.0); Alkaline Phosphatase 92 U/L (39-117); Aspartate Amino Transferase 34 U/L (5-31); Bilirubin Direct 0.3 mg/dL (0.0-0.5); Total Protein 7.7 g/dL (6.5-8.0)
[2023-02-16 05:49] LABS: Hepatitis A Antibody IgG Nonreactive (Nonreactive); ~Hepatitis A Antibody IgG 0.34 S/CO (0.00-0.99)
[2023-02-16 05:53] LABS: HBS Num1 0.21 mIU/mL (0-7.99); HBc Num1 0.13 S/CO (0.00-0.79); HBsAGNum1 0.42 S/CO (0.00-0.99); Hepatitis B Core Antibody Nonreactive (Nonreactive); Hepatitis B Surface Antigen Negative (Negative); ~HepC Num1 0.07 S/CO (0.00-0.79); ~Hepatitis B Surface Antibody NONREACTIVE (Nonreactive); ~Hepatitis C Antibody Nonreactive (Nonreactive)
== END 2023-02-14 14:16 | disposition home or self-care (01) ==
LOC: HO.HMGCLDS 14:15
PROVIDERS: PCP Internal Medicine; Visit Provider Internal Medicine
DX: R79.89 Other specified abnormal findings of blood chemistry (principal)
CPT/HCPCS: 36415; 80076; 86704; 86706; 86708; 86803; 87340